=== PATIENT | male | born 1975 | race Caucasian/White ===

== ENCOUNTER 2019-07-30 20:27 | Emergency (ER) | payer SELFPAY ==
[~2019-07-30] VITALS: Ht 172.7 cm; Wt 72.1 kg
--- NOTE | 2019-07-30 20:45 | NUR ---
BERNADETTESEMIRZA. TO ER BED 2. AAOX4. NO RESP DISTRESS NOTED. AMBULATORY. C/O LIP PAIN AND SWELLING. PT REPORTS PAIN STARTED YESTERDAY WELL SWELLING. PT REPORTS PAIN 8/10 SHARP THROBBING. PT REPORTS THAT HE HAS A FUNGAL INFECTION AT HIS LIP. AWAITING MD ALESSANDRA DORMAN.
--- NOTE | 2019-07-30 21:41 | NUR ---
AT BEDSIDE FOR EVAL
--- NOTE | 2019-07-30 21:59 | NUR ---
BLOOD DRAWN AND GIVEN TO LAB
[2019-07-30] MEDS ORDERED: IV NS 0.9% 1,000 ML BAG IV ONE (22:00)
[2019-07-30] MEDS ORDERED: KETOROLAC TROMETHAMINE INJ 30 MG/ML VIAL IV ONE (22:00)
[2019-07-30] MEDS ORDERED: KETOROLAC TROMETHAMINE 15 MG/ML VIAL ONE ×2 (22:01→22:05)
[2019-07-30 22:03] LABS: BASOPHILS % (AUTO) 0.3 % (0.0-2.0); EOSINOPHILS % (AUTO) 0.5 % (0.0-6.0); HEMATOCRIT 42 % (39-51); HEMOGLOBIN 14.2 g/dL (13.5-17.5); LYMPHOCYTES # (AUTO) 1.3 /CMM (0.8-4.8); LYMPHOCYTES % (AUTO) 10.4 % (20.0-44.0); MEAN CORPUSCULAR HGB CONC 34 g/dl (31.0-36.0); MEAN CORPUSCULAR VOLUME 92 fL (80-96); MONOCYTES # (AUTO) 1.1 /CMM (0.1-1.30); MONOCYTES % (AUTO) 8.8 % (2.0-12.0); PLATELET COUNT (AUTO) 216 /CMM (150-450); RED BLOOD CELL COUNT(AUTO) 4.57 MIL/uL (4.5-6.0); WHITE BLOOD COUNT (AUTO) 12.5 K/uL (4.3-11.0)
[2019-07-30 22:12] LABS: CALCIUM, SERUM 8.5 mg/dL (8.5-10.1); CREATININE 1.1 mg/dL (0.6-1.3)
[2019-07-30] MEDS ORDERED: CLINDAMYCIN HCL 150 MG CAPSULE PO ONE ×2 (22:59→23:00)
[2019-07-30 23:21] VITALS: BP 141/76
--- NOTE | 2019-07-30 23:21 | NUR ---
IV removed. Catheter intact and site benign. Pressure and 4x4 applied to site. No bleeding noted.Patient discharged to home in stable condition. Written and verbal after care instructions given. Patient verbalizes understanding of instruction. PT AMBULATORY WITH STEADY GAIT.
== END 2019-07-30 23:22 | disposition home or self-care (01) ==
LOC: ER 20:32
DX: K13.0 Diseases of lips (principal); Z60.2 Problems related to living alone
CPT/HCPCS: 36415; 80048; 85025; 96374; 99283; J1885 ×2; J7030